=== PATIENT | male | born 1975 | race Caucasian/White ===

== ENCOUNTER 2018-10-05 10:56 | Emergency (ER) | payer BC ==
[2018-10-05 11:02] VITALS: RESP 18; TEMP 98.2
[2018-10-05] MEDS ORDERED: SODIUM CHLORIDE 0.9% 1,000 ML IV STA ×2 (11:13)
[2018-10-05] MEDS ORDERED: ONDANSETRON 4 MG/2 ML VIAL IVP STA (11:13)
[2018-10-05] MEDS ORDERED: MORPHINE SULFATE 4 MG/ML SYRINGE IV STA (11:13)
--- NOTE | 2018-10-05 11:17 | ED ---
Abdominal Pain HPI - General Chief Complaint: Abdominal Pain Stated Complaint: Abdominal pain Time Seen by Provider: 10/05/18 11:03 Source: patient, RN notes reviewed, old records reviewed Mode of arrival: ambulatory Limitations: no limitations - History of Present Illness Initial Comments: 43-year-old male presents returned today with complaints of lower abdominal pain. Patient reports that symptoms are on the left hand side. Patient he has had some cramping pain, Patient reports his been previously diagnosed with diverticulitis. He reports is also some difficulty with urination. Patient states that he has had no chest pain shortness of breath, nausea, vomiting. - Related Data Home Medications Medication Instructions Recorded Confirmed Ibuprofen [Motrin] 600 mg PO Q6HR PRN 10/05/18 10/05/18 Melatonin 5 mg PO DAILY PRN 10/05/18 10/05/18 Previous Rx's Medication Instructions Recorded Ciprofloxacin HCl [Cipro] 500 mg PO Q12HR #14 tablet 10/05/18 metroNIDAZOLE [Flagyl] 500 mg PO TID #21 tab 10/05/18 Allergies Allergy/AdvReac Type Severity Reaction Status Date / Time azithromycin [From Zithromax] Allergy Rash/Hives Verified 10/05/18 11:28 Review of Systems ROS Statement: Those systems with pertinent positive or pertinent negative responses have been documented in the HPI. ROS Other: All systems not noted in ROS Statement are negative. Past Medical History Additional Past Medical History / Comment(s): diverticulitis History of Any Multi-Drug Resistant Organisms: None Reported Past Surgical History: No Surgical Hx Reported Past Psychological History: No Psychological Hx Reported Smoking Status: Former smoker Past Alcohol Use History: None Reported Past Drug Use History: None Reported General Exam - General Exam Comments Initial Comments: This is a 43-year-old male. Alert and oriented. No distress. Limitations: no limitations Head exam: Present: atraumatic, normocephalic, normal inspection Eye exam: Present: normal appearance, PERRL, EOMI. Absent: scleral icterus, conjunctival injection, periorbital swelling ENT exam: Present: normal exam, mucous membranes moist Neck exam: Present: normal inspection. Absent: tenderness, meningismus, lymphadenopathy Respiratory exam: Present: normal lung sounds bilaterally. Absent: respiratory distress, wheezes, rales, rhonchi, stridor Cardiovascular Exam: Present: regular rate, normal rhythm, normal heart sounds. Absent: systolic murmur, diastolic murmur, rubs, gallop, clicks GI/Abdominal exam: Present: soft, tenderness (Left lower quadrant tenderness), normal bowel sounds. Absent: distended, guarding, rebound, rigid Extremities exam: Present: normal inspection, full ROM, normal capillary refill. Absent: tenderness, pedal edema, joint swelling, calf tenderness Back exam: Present: normal inspection Neurological exam: Present: alert, oriented X3, CN II-XII intact Psychiatric exam: Present: normal affect, normal mood Skin exam: Present: warm, dry, intact, normal color. Absent: rash Course Vital Signs 10/05/18 11:00 Temperature 98.2 F Pulse Rate 93 Respiratory 18 Rate Blood Pressure 146/80 O2 Sat by Pulse 98 Oximetry Medical Decision Making - Medical Decision Making Patient is a 43-year-old male presents returns today with complaint of left lower quadrant abdominal pain for the past 3 days. Patient states that he's had a history of diverticulitis in the past. He also states that he's had some hesitancy with urination. Patient reports that he is noticed no blood in his urine. He denies any known fevers or chills. No nausea or vomiting. The second Patient is significantly tender over the left lower quadrant. Lab work was obtained. Urinalysis negative for blood or infection. Patient with blood cell count is within normal limits. CT abdomen and pelvis was completed and does show evidence of acute sigmoid diverticulitis. We'll treat the Patient with Cipro and Flagyl. Discharged with the course of started pack of pain medication. I discussed with the Patient that he needs to monitor his diet. He does relate after finding out the diagnosis of diverticulitis that he has been eating more granola. Discussed strict return parameters and close follow- up with PCP. - Lab Data Result diagrams: 10/05/18 11:26 10/05/18 11:26 Lab Results 10/05/18 10/05/18 10/05/18 Range/Units 11:26 11:26 11:31 WBC 9.6 (3.8-10.6) k/uL RBC 5.35 (4.30-5.90) m/uL Hgb 15.2 (13.0-17.5) gm/dL Hct 45.4 (39.0-53.0) % MCV 84.9 (80.0-100.0) fL MCH 28.5 (25.0-35.0) pg MCHC 33.6 (31.0-37.0) g/dL RDW 13.2 (11.5-15.5) % Plt Count 239 (150-450) k/uL Neutrophils % 71 % Lymphocytes % 19 % Monocytes % 7 % Eosinophils % 1 % Basophils % 1 % Neutrophils # 6.8 (1.3-7.7) k/uL Lymphocytes # 1.8 (1.0-4.8) k/uL Monocytes # 0.6 (0-1.0) k/uL Eosinophils # 0.1 (0-0.7) k/uL Basophils # 0.1 (0-0.2) k/uL Sodium 138 (137-145) mmol/L Potassium 5.0 (3.5-5.1) mmol/L Chloride 106 (98-107) mmol/L Carbon Dioxide 23 (22-30) mmol/L Anion Gap 9 mmol/L BUN 23 H (9-20) mg/dL Creatinine 1.02 (0.66-1.25) mg/dL Est GFR (CKD-EPI)AfAm >90 (>60 ml/min/1.73 sqM) Est GFR (CKD-EPI)NonAf 89 (>60 ml/min/1.73 sqM) Glucose 95 (74-99) mg/dL Calcium 9.6 (8.4-10.2) mg/dL Total Bilirubin 1.2 (0.2-1.3) mg/dL AST 37 (17-59) U/L ALT 52 (21-72) U/L Alkaline Phosphatase 52 (38-126) U/L Total Protein 7.5 (6.3-8.2) g/dL Albumin 4.4 (3.5-5.0) g/dL Amylase 41 (30-110) U/L Lipase 38 (23-300) U/L Urine Color Yellow Urine Appearance Clear (Clear) Urine pH 5.5 (5.0-8.0) Ur Specific Webster 1.021 (1.001-1.035) Urine Protein Negative (Negative) Urine Glucose (UA) Negative (Negative) Urine Ketones Trace H (Negative) Urine Blood Negative (Negative) Urine Nitrite Negative (Negative) Urine Bilirubin Negative (Negative) Urine Urobilinogen <2.0 (<2.0) mg/dL Ur Leukocyte Esterase Negative (Negative) - Radiology Data Radiology results: report reviewed Exam is positive for acute sigmoid diverticulitis with [id number] inflammation, no abscess or free air. Hepatomegaly with marked hepatic steatosis. Correlate with LFTs and lipid profile Patient risk factors. Scattered nonenlarged mild prominent lymph nodes in the abdomen measuring up to 7 mm likely post inflammatory and reactive. Disposition Clinical Impression: Diverticulitis, Hepatic steatosis Disposition: HOME SELF-CARE Condition: Good Instructions (If sedation given, give patient instructions): Diverticulitis (ED ), Diverticulitis Diet (ED) Additional Instructions: Is advised to take the medication as prescribed. Follow-up with your primary care physician. Return to the emergency department if any alarming signs or symptoms occur. Patient should ensure that his diet is avoiding seeds, granola' s, and popcorn, and other foods that can trigger diverticulitis. Prescriptions: Ciprofloxacin HCl [Cipro] 500 mg PO Q12HR #14 tablet metroNIDAZOLE [Flagyl] 500 mg PO TID #21 tab Is patient prescribed a controlled substance at d/c from ED?: No Referrals: None,Stated [REFERRING] - 1-2 days Linda العلي MD [STAFF PHYSICIAN] - 1-2 days Time of Disposition: 13:26
[2018-10-05 11:57] LABS: Appearance,Urine Clear (Clear); Bilirubin,Urine Negative (Negative); Blood,Urine Negative (Negative); Color,Urine Yellow; Glucose,Urine (UA) Negative (Negative); Ketones,Urine Trace (Negative); Leukocyte Esterase,Urine Negative (Negative); Nitrite,Urine Negative (Negative); PH, Urine 5.5 (5.0-8.0); Protein,Urine Negative (Negative); Specific Gravity,Urine 1.021 (1.001-1.035); Urobilinogen,Urine <2.0 mg/dL (<2.0)
[2018-10-05 12:00] LABS: Basophils # (A) 0.1 k/uL (0-0.2); Basophils % (A) 1 %; Eosinophils # (A) 0.1 k/uL (0-0.7); Eosinophils % (A) 1 %; HCT 45.4 % (39.0-53.0); HGB 15.2 gm/dL (13.0-17.5); Lymphocytes # (A) 1.8 k/uL (1.0-4.8); Lymphocytes % (A) 19 %; MCH 28.5 pg (25.0-35.0); MCHC 33.6 g/dL (31.0-37.0); MCV 84.9 fL (80.0-100.0); Mean Platelet Volume 7.5; Monocytes # (A) 0.6 k/uL (0-1.0); Monocytes % (A) 7 %; Neutrophils # (A) 6.8 k/uL (1.3-7.7); Neutrophils % (A) 71 %; Platelet Count 239 k/uL (150-450); RBC 5.35 m/uL (4.30-5.90); RDW 13.2 % (11.5-15.5); WBC 9.6 k/uL (3.8-10.6)
[2018-10-05 12:17] LABS: ALT 52 U/L (21-72); AST 37 U/L (17-59); Albumin 4.4 g/dL (3.5-5.0); Alkaline Phosphatase 52 U/L (38-126); Amylase 41 U/L (30-110); Anion Gap 9 mmol/L; Blood Urea Nitrogen 23 mg/dL (9-20); Calcium 9.6 mg/dL (8.4-10.2); Carbon Dioxide 23 mmol/L (22-30); Chloride 106 mmol/L (98-107); Glucose 95 mg/dL (74-99); Lipase 38 U/L (23-300); Sodium 138 mmol/L (137-145); Total Bilirubin 1.2 mg/dL (0.2-1.3); Total Protein 7.5 g/dL (6.3-8.2)
--- NOTE | 2018-10-05 13:17 | CT ---
EXAMINATION TYPE: CT abdomen pelvis w con DATE OF EXAM: 10/05/2018 COMPARISON: NONE HISTORY: 43-year-old male Low pelvic pain TECHNIQUE: Contiguous axial scanning of the abdomen and pelvis following administration of 100 ml Iso keisha 300 IV contrast. Delayed images through the kidneys and coronal/sagittal reconstructions perform ed. CT DLP: 1872.9 mGycm Automated exposure control for dose reduction was used. FINDINGS: Heart normal size without pericardial effusion. Lung bases clear without pleural effusion. Tiny hiatal hernia. Liver measures 20.8 cm and shows diffuse low-attenuation. Portal venous system is patent. No biliary ductal dilatation. Gallbladder, adrenal glands, left kidney, spleen, and pancreas appear within normal limits. Subcentimeter hypodensity posterior right kidney too small for accurate CT characterization, probable cyst. Some scattered nonenlarged and borderline sized mesenteric lymph nodes measure up to 7 mm, for exampl e, right lower quadrant axial image 59. Some scattered prominent retroperitoneal lymph nodes are also present measuring up to 7 mm in the aortocaval region, axial image 47. These are nonspecific but pro bably reactive/post inflammatory. No dilated small bowel, free fluid, or free air. Proximal to mid sigmoid diverticulosis with moderate circumferential wall thickening and mild to mode rate surrounding inflammatory fat stranding. No abscess formation. Bladder urine distended. No abnormal fluid collection in the pelvis or pelvic lymphadenopathy seen. Bones: Mild degenerative changes at the hips. No osseous destructive process. IMPRESSION: 1. EXAM POSITIVE FOR ACUTE SIGMOID DIVERTICULITIS WITH MILD TO MODERATE INFLAMMATION. NO ABSCESS OR F REE AIR. 2. HEPATOMEGALY (20.8 CM) WITH MARKED HEPATIC STEATOSIS. CORRELATE WITH LFT's, LIPID PROFILE, AND PAT IENT RISK FACTORS. 3. SCATTERED NONENLARGED AND MILDLY PROMINENT LYMPH NODES IN THE ABDOMEN MEASURING UP TO 7 MM LIKELY REACTIVE/POST INFLAMMATORY.
[2018-10-05] MEDS ORDERED: metroNIDAZOLE 500 MG TAB PO STA (13:26)
[2018-10-05] MEDS ORDERED: CIPROFLOXACIN HCL 500 MG TAB PO STA (13:26)
[2018-10-05] MEDS ORDERED: ACET/COD 300 MG/30 MG STARTER PACK 6 TAB BTL PO STA (13:26)
[2018-10-05 13:54] VITALS: BP 154/82; PULSE 87
== END 2018-10-05 13:54 | disposition home or self-care (01) ==
LOC: EDSEX → EC 10:56
DX: K57.32 Diverticulitis of large intestine without perforation or abscess without bleeding (principal); K76.0 Fatty (change of) liver, not elsewhere classified; R16.0 Hepatomegaly, not elsewhere classified; R39.11 Hesitancy of micturition; Z87.891 Personal history of nicotine dependence; Z88.1 Allergy status to other antibiotic agents; Z53.20 Procedure and treatment not carried out because of patient's decision for unspecified reasons
CPT/HCPCS: 36415; 80053; 82150; 83690; 85025; 81003; 74177; 99284; 96360; 96361; Q9967

== ENCOUNTER 2020-06-22 15:32 | Emergency (ER) | payer BC ==
[2020-06-22 16:06] VITALS: BP 161/98; PULSE 107; RESP 20; TEMP 98.1
[2020-06-22] MEDS ORDERED: DIPH,PERTUS(ACELL)TETVAC-LF 0.5 ML VIAL IM ONE (17:01)
[2020-06-22] MEDS ORDERED: BACITRACIN OINT 1 EACH PACKET TOPICAL ONE (17:21)
--- NOTE | 2020-06-22 17:22 | ED ---
Wound/Laceration HPI - General Source: patient, RN notes reviewed, old records reviewed Mode of arrival: ambulatory Limitations: no limitations <Merline Vega - Last Filed: 06/23/20 10:17> <Kiara George - Last Filed: 06/30/20 00:34> - General Chief Complaint: Wound/Laceration Stated Complaint: Wound on arm. Poss stitches Time Seen by Provider: 06/22/20 17:01 - History of Present Illness Initial Comments: 45 year old male present with laceration on L forearm from cutting a piece of sheet metal and hitting it with his forearm. Denies pain with ROM. PT requests new TDAP. Pt cleaned area nad denies paresthesia. (Merline Vega) - Related Data Home Medications Medication Instructions Recorded Confirmed Ibuprofen [Motrin] 600 mg PO Q6HR PRN 10/05/18 10/05/18 Melatonin 5 mg PO DAILY PRN 10/05/18 10/05/18 Previous Rx's Medication Instructions Recorded Ciprofloxacin HCl [Cipro] 500 mg PO Q12HR #14 tablet 10/05/18 metroNIDAZOLE [Flagyl] 500 mg PO TID #21 tab 10/05/18 Allergies Allergy/AdvReac Type Severity Reaction Status Date / Time azithromycin [From Zithromax] Allergy Rash/Hives Verified 06/22/20 16:06 Review of Systems ROS Other: All systems not noted in ROS Statement are negative. <Merline Vega - Last Filed: 06/23/20 10:17> ROS Other: All systems not noted in ROS Statement are negative. <Kiara George - Last Filed: 06/30/20 00:34> ROS Statement: Those systems with pertinent positive or pertinent negative responses have been documented in the HPI. Past Medical History Additional Past Medical History / Comment(s): diverticulitis History of Any Multi-Drug Resistant Organisms: None Reported Past Surgical History: No Surgical Hx Reported Past Psychological History: No Psychological Hx Reported Smoking Status: Never smoker Past Alcohol Use History: None Reported Past Drug Use History: None Reported <Merline Vega - Last Filed: 06/23/20 10:17> General Exam Limitations: no limitations General appearance: alert, in no apparent distress Head exam: Present: atraumatic, normocephalic, normal inspection Eye exam: Present: normal appearance, PERRL, EOMI. Absent: scleral icterus, conjunctival injection, periorbital swelling ENT exam: Present: normal exam, mucous membranes moist Neck exam: Present: normal inspection. Absent: tenderness, meningismus, ly mphadenopathy Respiratory exam: Present: normal lung sounds bilaterally. Absent: respiratory distress, wheezes, rales, rhonchi, stridor Cardiovascular Exam: Present: regular rate, normal rhythm, normal heart sounds. Absent: systolic murmur, diastolic murmur, rubs, gallop, clicks GI/Abdominal exam: Present: soft, normal bowel sounds. Absent: distended, tenderness, guarding, rebound, rigid Extremities exam: Present: normal inspection, full ROM, normal capillary refill, other (3 cm laceration on R forearm, superificial. Bleeding controlled.). Absent: tenderness, pedal edema, joint swelling, calf tenderness Back exam: Present: normal inspection Neurological exam: Present: alert, oriented X3, CN II-XII intact <Merline Vega - Last Filed: 06/23/20 10:17> - General Exam Comments Initial Comments: 45 year old male, , no acute distress. (Merline Vega) Course Vital Signs 06/22/20 16:03 Temperature 98.1 F Pulse Rate 107 H Respiratory 20 Rate Blood Pressure 161/98 O2 Sat by Pulse 96 Oximetry Procedures - Laceration Laceration #1 Site: upper extremity (R forearm) Size (cm): 3 Description: linear Depth: simple, single layer Anesthetic Used: lidocaine 1% Anesthesia Technique: local infiltration Amount (mls): 4 Pre-repair: wound explored, irrigated extensively Type of Sutures: nylon Size of Sutures: 5-0 Number of Sutures: 5 Technique: simple, interrupted Patient Tolerated Procedure: well, no complications <Merline Vega - Last Filed: 06/23/20 10:17> Medical Decision Making <Merline Vega - Last Filed: 06/23/20 10:17> <Kiara George - Last Filed: 06/30/20 00:34> - Medical Decision Making 45 year old male with R forearm laceration from piece of sheet metal. Pt wound was cleaned and superficial. Given TDAP. Wound closed with 5 sutures. Discussed return parameters and suture care. (Merline Vega) I was available for consultation in the emergency department. The history and physical exam were done by the midlevel provider. I was consulted for this patients care. I reviewed the case with the midlevel provider and based on their presentation of the patient, I agree with the assessment, medical decision making and plan of care as documented. Chart was dictated using [employer] dictation software. Attempts were made to correct any dictation errors however some typographical errors may persist. Patient was seen during a national state of emergency due to the Covid-19 pandemic. (Kiara George) Disposition Is patient prescribed a controlled substance at d/c from ED?: No Time of Disposition: 17:21 <Merline Vega - Last Filed: 06/23/20 10:17> <Kiara George - Last Filed: 06/30/20 00:34> Clinical Impression: Laceration Disposition: HOME SELF-CARE Condition: Good Instructions (If sedation given, give patient instructions): Laceration (ED) Additional Instructions: Please return to the emergency room in 8-10 days to have sutures removed. Please leave wound covered for the first 24-48 hours and then leave open to air after that time. Please use clean soap and water to clean the suture area to prevent scabbing over the top of your sutures. Please watch for any signs of infection which may include but not limited to increased pain, swelling, redness, fever or chills. Please return to the emergency room if any signs of infection do occur. Please return to the emergency room for any other concerns or complications. Referrals: None,Stated [REFERRING] - 1-2 days
== END 2020-06-22 17:34 | disposition home or self-care (01) ==
LOC: EC 15:32
DX: S51.811A Laceration without foreign body of right forearm, initial encounter (principal); Z23 Encounter for immunization; Z88.1 Allergy status to other antibiotic agents; W22.8XXA Striking against or struck by other objects, initial encounter; Y92.009 Unspecified place in unspecified non-institutional (private) residence as the place of occurrence of the external cause
CPT/HCPCS: 12002; 90471; 90715; 99283

== ENCOUNTER → 2023-11-23 | Outpatient (CLI) | payer BC ==
[2023-11-23 14:57] LABS: Basophils # (A) 0.1 k/uL (0-0.2); Basophils % (A) 1 %; Eosinophils # (A) 0.2 k/uL (0-0.7); Eosinophils % (A) 2 %; HCT 48.6 % (39.0-53.0); HGB 15.7 gm/dL (13.0-17.5); Lymphocytes # (A) 2.3 k/uL (1.0-4.8); Lymphocytes % (A) 25 %; MCHC 32.3 g/dL (31.0-37.0); MCV 86.6 fL (80.0-100.0); Mean Platelet Volume 7.7; Monocytes # (A) 0.7 k/uL (0-1.0); Monocytes % (A) 8 %; Neutrophils # (A) 5.7 k/uL (1.3-7.7); Neutrophils % (A) 63 %; Platelet Count 275 k/uL (150-450); RBC 5.62 m/uL (4.30-5.90); RDW 12.7 % (11.5-15.5); WBC 9.1 k/uL (3.8-10.6)
[2023-11-23 15:07] LABS: ALT 34 U/L (4-49); AST 24 U/L (17-59); African American GFR (CKD) 89 (>60 ml/min/1.73 sqM); Albumin 4.4 g/dL (3.5-5.0); Albumin/Globulin Ratio 1.5; Alkaline Phosphatase 67 U/L (38-126); Anion Gap 8 mmol/L; Blood Urea Nitrogen 18 mg/dL (9-20); Calcium 9.2 mg/dL (8.4-10.2); Carbon Dioxide 27 mmol/L (22-30); Chloride 105 mmol/L (98-107); Glucose 94 mg/dL (74-99); Non-African American GFR(CKD) 77 (>60 ml/min/1.73 sqM); Potassium 4.5 mmol/L (3.5-5.1); Sodium 140 mmol/L (137-145); Total Bilirubin 0.5 mg/dL (0.2-1.3); Total Protein 7.4 g/dL (6.3-8.2)
--- NOTE | 2023-11-23 16:23 | CT ---
EXAMINATION TYPE: CT abdomen pelvis w con DATE OF EXAM: 11/23/2023 COMPARISON: 10/05/2018 INDICATION: LLQ abdominal pain x 2 days, history of diverticulitis. DLP: 1779 mGycm, Automated exposure control for dose reduction was used. CONTRAST: 100ml mL of Isovue 300. Study performed with Oral Contrast TECHNIQUE: Axial images were obtained from above the diaphragm to the pubic rami in the axial plane a t 5 mm thick sections. Reconstructed images are reviewed on the computer in the coronal plane. FINDINGS: Limited CT sections are obtained the lung bases. The lung bases are clear. CT ABDOMEN: Liver: There is moderate fatty infiltration of liver. Spleen: Normal Pancreas: Normal Adrenal glands: The adrenal glands are normal. Gallbladder: Normal Kidneys: No masses are evident. No hydronephrosis is present. There is a 1.8 cm cyst in the posteri or mid right kidney. No obstructing renal or ureteral stones evident. Aorta: Normal Inferior vena cava: Normal. CT PELVIS: There are inflammatory changes adjacent to the descending colon sigmoid colon junction compatible wit h acute diverticulitis. No free air is evident. No abscess formation is evident. Additional diverticu la are within sigmoid colon. No dilated loops of bowel are evident. There are loops of bowel which ar e incompletely distended or lack oral contrast limiting their evaluation. Appendix: Normal as visualized. Urinary bladder: Normal. Genitourinary structures: Prostate appears normal Osseous structures: No suspicious lytic or sclerotic lesions. IMPRESSION: 1. Acute diverticulitis descending colon and sigmoid colon junction.
== END | disposition home or self-care (01) ==
LOC: RADCTMAIN 14:29
PROVIDERS: ATTEND Family Medicine
DX: K57.32 Diverticulitis of large intestine without perforation or abscess without bleeding (principal)
CPT/HCPCS: 80053; 85025; 74177; 36415; Q9967